=== PATIENT | male | born 1970 | race Caucasian/White ===

== ENCOUNTER 2017-03-21 05:40 | Day surgery (SDC) | payer BC ==
[~2017-03-21] VITALS: Ht 180.3 cm; Wt 104.3 kg
[~2017-03-21 05:40] MED LIST: CIPRO500 MG PO; FLOMAX0.4 MG PO
--- NOTE | 2017-03-21 08:54 | NUR ---
03/21/17 0854 Rachel Lopez 0836 PT ARRIVED TO PACU, WITH NASAL IN PLACE. RESP EVEN AND UNLABORED. 0845 PT RESPONDES TO STIMULI AND NASAL ARIWAY IS REMOVED. PT BACK TO SLEEP. O2 SAT 98% ON 8L VIA MASK.
--- NOTE | 2017-03-28 09:25 | OR ---
[facility] [address] [facility] [place], [place] [address] Signed DATE OF OPERATION: 03/21/2017 SURGEON: Luke Stark MD PREOPERATIVE DIAGNOSES: 1. Left ureterolithiasis. 2. Left nephrolithiasis. POSTOPERATIVE DIAGNOSES: 1. Left ureterolithiasis. 2. Left nephrolithiasis. NAMES OF PROCEDURES: 1. Diagnostic cystoscopy with manual extraction of left ureterovesical junction calculus. 2. Left nephroureteroscopy with extraction of multiple small stones. 3. Insertion of left ureteral stent. ANESTHESIA: General. ESTIMATED BLOOD LOSS: None. COMPLICATIONS: None. SPECIMENS: Multiple small stones including the distal ureteral stone, sent to the lab for stone analysis. DRAINS: A 6 x 26 cm contour double-J ureteral stent inserted into the left ureter. INDICATIONS FOR PROCEDURE: Nasir is a very pleasant 46-year-old gentleman with previous history of nephrolithiasis, who presented to my clinic last week with a two-week or so history of intermittent severe left-sided flank pain that was now radiating to his left groin. On March 07, he had presented to the Emergency Department at [facility], where he underwent a CT scan, which revealed a 3 x 6 mm distal left ureteral calculus. At that time, he was Electronically Signed By: LUKE STARK MD 03/28/17 0925 PATIENT NAME: NASIR BETANCOURT OPERATIVE REPORT DATE OF : 72 PHYSICIAN: LUKE STARK MD REPORT #: [id number] REPORT IS CONFIDENTIAL AND NOT TO BE RELEASED WITHOUT AUTHORIZATION [facility] [address] [place], [place] [address] Signed seen in clinic, he was still experiencing intermittent left-sided flank pain, and was pretty sure the stone was still present in the ureter. He had been straining his urine to no avail. After discussion of the risks and benefits of stone extraction, the patient agreed to undergo elective ureteroscopy with extraction of his left distal ureteral calculus. Of note, the patient was noted to have a 2 to 3 mm stone in the left kidney along with a couple of other punctate stones. OPERATIVE FINDINGS: 1. On cystoscopy, there is no evidence of any suspicious masses or lesions. There is evidence of an actively ureteral calculus present at the left ureteral orifice. This stone was manipulated from behind using the cystoscope, and was thus pushed free from the intramuscular layers of the left ureterovesical junction. The stone was successfully extracted from the patient's bladder without difficulty. 2. Left nephroscopy revealed the presence of a 2 to 3 mm stone in the lower pole of the left kidney along with a couple of other small stone fragments. All three stones were extracted in toto using a Zero-tip basket without difficulty. 3. A 6 x 26 cm contour double-J ureteral stent was inserted into the left ureter under direct visualization without difficulty. DESCRIPTION OF PROCEDURE: After informed consent was obtained, the patient was taken back to the operating room. He was transferred from the [facility] to the operating room table, where general anesthesia was induced. He was placed in the dorsal lithotomy position and his genitalia were prepped and draped in a standard sterile fashion. Using a 30-degree lens on a 22-Kazakh introducer, a rigid cystoscope was inserted through the urethra and into his bladder under direct visualization. Panendoscopic views of the bladder were then obtained. Please see the findings. I was easily able to visualize the left ureteral calculus. I used the scope to gently push on the more proximal portion of the intramural ureter just behind the stone. After couple of pushes, the stone popped out of the left ureteral orifice. The stone was then collected via drainage from the cystoscope and placed in a specimen cup. At that time, decision was made to go ahead and pursue extraction of the stones present in the patient's left kidney. The left ureteral orifice was cannulated with a Sensor wire, an adequate placement was confirmed on fluoroscopy. Over the Sensor wire, an 03/21 ureteral access sheath was placed into the left ureter. Retrograde pyelogram was performed, which confirmed adequate placement of the ureteral access sheath. A flexible ureteroscope was then advanced through the sheath and up into the left proximal ureter and left kidney. A left flexible nephroureteroscopy was then performed. Please see above findings. Each stone was located and grasped using a Zero-tip basket and removed completely. This portion of the procedure was done without any complication. Once I was satisfied that all the stones had been removed, the flexible ureteroscope was then withdrawn from the left ureter and bladder. A Sensor wire was inserted through the ureteral access sheath and then the ureteral access sheath was Electronically Signed By: LUKE STARK MD 03/28/17 0925 PATIENT NAME: NASIR BETANCOURT OPERATIVE REPORT DATE OF : 72 PHYSICIAN: LUKE STARK MD REPORT #: [id number] REPORT IS CONFIDENTIAL AND NOT TO BE RELEASED WITHOUT AUTHORIZATION [address] [address] Signed then removed. Over the wire, a 6 x 26 cm contour double-J ureteral stent was inserted into the patient's left ureter under direct visualization. An adequate proximal coil was seen on fluoroscopy along with an adequate distal coil on cystoscopy. The patient's bladder was then drained and the cystoscope was removed. The procedure was then terminated. The patient tolerated the procedure well without any complication. He will now be transferred to the postanesthesia care unit in stable condition. DISPOSITION: Mr. Betancourt will be discharged to home today in stable condition in accompany of his and his young son. I explained the details of today's procedure to both the patient and his postoperatively and answered all of their questions. He will be sent home today on Bactrim Double Strength for a total of 7 days along with Percocet 5/325, dispense #10 as needed for pain. He will be scheduled to return to clinic this March 25 to undergo cystoscopy with left ureteral stent extraction. Hopefully, his stone analysis results will be back in time for us to discuss those results at the time of his office visit. MD GISELLE Goodman/PAULINO /[id number] Electronically Signed By: LUKE STARK MD 03/28/17 0925 PATIENT NAME: ARACELY BETANCOURTN Nataly OPERATIVE REPORT DATE OF : 72 PHYSICIAN: LUKE STARK MD REPORT #: [id number] REPORT IS CONFIDENTIAL AND NOT TO BE RELEASED WITHOUT AUTHORIZATION
== END 2017-03-21 10:10 | disposition home or self-care (01) ==
LOC: OPS 05:40 → DS 05:40 → OPS 06:45
PROVIDERS: Urology
PROC: 0TC78ZZ Extirpation of Matter from Left Ureter, Via Natural or Artificial Opening Endoscopic (ICD-10-PCS; principal; 2017-03-21 06:45)
PROC: 0T778DZ Dilation of Left Ureter with Intraluminal Device, Via Natural or Artificial Opening Endoscopic (ICD-10-PCS; 2017-03-21 06:45)
DX: N20.2 Calculus of kidney with calculus of ureter (principal); F17.210 Nicotine dependence, cigarettes, uncomplicated; Z96.651 Presence of right artificial knee joint; Z88.0 Allergy status to penicillin
CPT/HCPCS: 00910; 74420; 82365; C2617; J0696; J1100; J1885; J2250; J2405; J3010; J7120; Q9967

== ENCOUNTER 2020-03-13 06:11 | Day surgery (SDC) | payer BC ==
[~2020-03-13] VITALS: Ht 180.3 cm; Wt 109.0 kg
--- NOTE | ~2020-03-13 | OR ---
[facility] [address] [place], [place] [address] Draft DATE OF OPERATION: 03/13/2020 SURGEON: Rodríguez Cox MD PREOPERATIVE DIAGNOSIS: Incarcerated umbilical hernia. POSTOPERATIVE DIAGNOSIS: Incarcerated umbilical hernia omental fat. PROCEDURES: 1. Repair of incarcerated umbilical hernia. 2. Implantation of Prolene mesh underlay technique with fascial closure. ANESTHESIA: General endotracheal; Haris Silverio CRNA and local 20 mL of 0.25% Marcaine with epinephrine. INDICATION: This 49-year-old white man is a patient of Gladis Louis PA-C. He is noted to have a small mass at the umbilicus. His symptoms appeared while lifting. At this time his discomfort has increased and he has noted a small mass, which appears to be incompletely reducible consistent with an incarcerated umbilical hernia. He has no nausea or vomiting to suggest hollow viscus incarceration. An ultrasound was performed confirming the fat within the hernia. This was under the direction of RIVERA Craft. He is admitted at this time to undergo repair of the hernia. He understands the risks of bleeding, infection, recurrence, and other unforeseen complications. Implantation of mesh is likely. He understand the risks, he wished to proceed. FINDINGS: The fascial defect was 2-3 cm in size. There was incarcerated properitoneal fat and omentum. The hernia was reduced without requiring excision. The properitoneal space was developed with a 2-3 cm margin allowing for implantation of Prolene mesh in the properitoneal space. Transverse reapproximation of the fascia was undertaken as well. There were no complications. DESCRIPTION OF PROCEDURE: The patient was brought to the operating room and given a general endotracheal PATIENT NAME: NASIR BETANCOURT OPERATIVE REPORT DATE OF : 72 REPORT #: [id number] PHYSICIAN: RODRÍGUEZ COX MD PCP: GLADIS LOUIS PA-C REPORT IS CONFIDENTIAL AND NOT TO BE RELEASED WITHOUT AUTHORIZATION [facility] [address] [place], [place] [address] Draft anesthetic. Preoperative antibiotic Ancef was given. Sequential compression device stockings were used and heparin subcutaneously administered. The abdomen was clipped and prepared with chlorhexidine solution and draped sterilely. The palpable mass at the umbilicus remained. It was not completely reducible. A curvilinear incision was made to the left of the umbilical skin fold. Dissection carried through the dermis sharply using blunt and electrocautery dissection. The subcutaneous space was developed and the herniated viscus freed from the overlying dermis of the umbilical skin itself. Ultimately, the hernia sac was opened and found to have incarcerated properitoneal fat and omentum. This was reduced into the peritoneal space. A plane was developed between the peritoneum and the overlying fascia and circumferentially developed using blunt dissection. The segment of Prolene mesh was cut to a circular configuration approximately 6 cm in size. It was secured in the properitoneal space with interrupted 0 Prolene suture. The fascia was reapproximated with interrupted 0 Prolene sutures as well, transversely reapproximating the fascial edge. Horizontal mattress sutures were used for this. 20 mL of 0.25% Marcaine with epinephrine was injected locally. Heidy layer was reapproximated with interrupted 2-0 Vicryl and a running subcuticular 3-0 Vicryl was used for the skin. Steri-Strips were applied as was a silver sponge dressing. Patient tolerated procedure well. BLOOD LOSS: Minimal. MD ALESSANDRA Acuña/PAULINO /[id number] cc: Gladis Louis PA-C Copies: ~ PATIENT NAME: SERAFINNASIR OPERATIVE REPORT DATE OF : 72 REPORT #: [id number] PHYSICIAN: RODRÍGUEZ COX MD PCP: GLADIS LOUIS PA-C REPORT IS CONFIDENTIAL AND NOT TO BE RELEASED WITHOUT AUTHORIZATION
[2020-03-13] MEDS ORDERED: ULTRAM50 MG PO (06:38)
[2020-03-13] MEDS ORDERED: LISINOPRIL-HCT1 EAC2 PO (06:38)
[2020-03-13] MEDS ORDERED: LEVOTHYROXINE100 MCG PO (06:39)
[2020-03-13] MEDS ORDERED: SERTRALINE HCL25 MG PO (06:39)
[2020-03-13] MEDS ORDERED: ROBAXIN-750750 MG PO (06:41)
--- NOTE | 2020-03-13 09:00 | NUR ---
03/13/20 0900 Vinson,Zandra Ingram PATIENT AWAKENED WITH TOUCH AND VOICE. ORAL AIRWAY REMOVED.
[2020-03-13] MEDS ORDERED: OXYCODON-ACETA1 EAC2 PO (09:05)
[2020-03-13] MEDS ORDERED: ACETAMINOPHEN500 MG PO (09:05)
[2020-03-13] MEDS ORDERED: IBUPROFEN600 MG PO (09:05)
--- NOTE | 2020-03-13 09:39 | NUR ---
PT ARRIVES TO DS RM 6 FROM PACU AWAKE BUT STATES FEELING "GROGGY." PT RATES PAIN 1/10 WHEN ASKED AND DENIES ANY NAUSEA. PT TAKES SMALL SIPS OF WATER WITH NO PROBLEMS. PT PROVIDED PUDDING AND CRACKERS. CALL LIGHT WITHIN REACH, DC CRITERIA EXPLAINED TO PT.
[2020-03-13] MEDS ORDERED: PERCOCET 7.5-31 EACH PO (10:09)
--- NOTE | 2020-03-13 10:28 | NUR ---
PT RESTING WITH EYES CLOSED ON ENTRANCE TO RM, EASILY AROUSES TO VERBAL STIMULI. PT STATES PAIN IS TOLERABLE AND DENIES ANY NAUSEA. PT ENC TO USE CALL LIGHT WITH URGE TO VOID. ICED WATER REFILLED. CALL LIGHT WITHIN REACH.
--- NOTE | 2020-03-13 10:45 | NUR ---
[id number]: PT USES CALL LIGHT TO NOTIFY DS STAFF OF URGE TO VOID. PT SITS AT SIDE OF BED PRIOR TO STANDING, DENIES ANY NAUSEA/DIZZINESS WITH POSITION CHANGE. PT HAS STEADY GAIT TO BATHROOM WITH RN ASSIST, VOIDS 100 MLS CONCENTRATED YELLOW URINE WITH NO PROBLEMS. BACK TO RM 6, PT STATES PAIN WITH MOVEMENT; SEE EMAR. 1120: DC CRITERIA MET AT THIS TIME, PT AGREEABLE TO GOING HOME. DC INSTRUCTIONS PRESENTED TO PT, PAIN PRESCRIPTION PROVIDED IN DC PACKET. PT DC VIA WC TO FRIEND WAITING AT HOSPITAL ENTRANCE TO HOME.
== END 2020-03-13 11:25 | disposition home or self-care (01) ==
LOC: DS 06:11
PROVIDERS: ATTEND Surgery
PROC: 0WUF0JZ Supplement Abdominal Wall with Synthetic Substitute, Open Approach (ICD-10-PCS; principal; 2020-03-13 06:45)
DX: K42.0 Umbilical hernia with obstruction, without gangrene (principal); I10 Essential (primary) hypertension; E03.9 Hypothyroidism, unspecified; F41.9 Anxiety disorder, unspecified; Z88.0 Allergy status to penicillin; Z79.890 Hormone replacement therapy; Z79.899 Other long term (current) drug therapy
CPT/HCPCS: 00750; C1781; J1644; J3010; J7121

== ENCOUNTER 2020-03-20 12:15 | Day surgery (SDC) | payer BC ==
[~2020-03-20 12:15] MED LIST changes: +ACETAMINOPHEN500 MG PO; +IBUPROFEN600 MG PO; +LEVOTHYROXINE100 MCG PO; +LISINOPRIL-HCT1 EAC2 PO; +OXYCODON-ACETA1 EAC2 PO; +PERCOCET 7.5-31 EACH PO; +ROBAXIN-750750 MG PO; +SERTRALINE HCL25 MG PO; +ULTRAM50 MG PO
--- NOTE | 2020-03-20 16:08 | NUR ---
03/20/20 1608 Oly Magana 1602 PATIENT ARRIVES TO PACU AWAKE, LAYING ON LEFT SIDE. RESP EVEN AND UNLABORED, ROOM AIR SATS >93%. DENIES PAIN OR NAUSEA. DOES HAVE HICCUPS.
--- NOTE | 2020-03-20 18:21 | OR ---
[facility] [place] [facility] [address] [place], [place] [address] Signed DATE OF OPERATION: 03/20/2020 SURGEON: Rodríguez Cox MD PREOPERATIVE DIAGNOSES: 1. Episodic rectal bleeding. 2. Recent umbilical hernia repair. POSTOPERATIVE DIAGNOSES: 1. Polyp at 20 cm (sessile, excised). 2. Internal hemorrhoidal changes, no sign of active bleeding. PROCEDURE: Total colonoscopy to cecum with hot snare polypectomy x1. ANESTHESIA: Intravenous sedation, fentanyl 100 mcg and Versed 9 mg. INDICATIONS: This 49-year-old white man is a patient of RIVERA Craft in [place]. He has noted episodic rectal bleeding. Additionally, he has had an incompletely reducible umbilical hernia. He underwent hernia repair recently and is recovering well from that. Given his rectal bleeding, consideration was made for colonoscopy. The risks of bleeding, infection, and perforation related to colonoscopy were reviewed with him in detail. He understands and wishes to proceed. FINDINGS: The prep was excellent. Complete colonoscopy was undertaken to the cecum without question. He did have a polyp at 20 cm, which was sessile and about a centimeter or more in size. This was excised with hot snare polypectomy technique without problem. Retroflexed view of the rectum confirmed internal hemorrhoids. There was no evidence of active bleeding or other problem regarding the hemorrhoids. DESCRIPTION OF PROCEDURE: The patient was brought to the endoscopy suite and placed in lateral decubitus position, given intravenous sedation to the point of slurred speech and nystagmus. Digital rectal examination was normal. The Olympus video colonoscope was passed into the rectum and manipulated throughout the colon, ultimately intubating the cecum itself. Careful withdrawal of scope showed no sign of abnormality until approximately 20 cm from the anal verge, where a sessile polyp was noted. This had adenomatous features. It was Electronically Signed By: RODRÍGUEZ COX MD 03/20/20 1821 PATIENT NAME: NASIR BETANCOURT OPERATIVE REPORT DATE OF : 72 REPORT #: [id number] PHYSICIAN: RODRÍGUEZ COX MD PCP: GLADIS LOUIS PA-C REPORT IS CONFIDENTIAL AND NOT TO BE RELEASED WITHOUT AUTHORIZATION [facility] [place] [facility] [address] [place], [place] [address] Signed excised with hot snare polypectomy technique in the usual way, complete excision was afforded. The specimen was passed for pathology. Further withdrawal of scope undertaken and retroflexed view undertaken and the rectum showing internal hemorrhoidal changes. There was no sign of active bleeding. The scope was removed. The patient was taken to the recovery room in good condition. CONCLUDING DIAGNOSIS: Rectal bleeding, most likely related to internal hemorrhoids rather than the polyp. The polyp has been excised. We would recommend repeat colonoscopy in 5 years based on the polyp. If dysplasia or some other adverse finding is noted of the polyp, a shorter interval would be appropriate. As regard to the hemorrhoids, high-fiber diet should be initiated. If he has recurrent rectal bleeding, consideration will be made for in office hemorrhoidal banding, which is highly effective and safe. He will otherwise return to the ongoing care of RIVERA Craft. MD ALESSANDRA Acuña/PAULINO /[id number] Copies: ~ Electronically Signed By: RODRÍGUEZ COX MD 03/20/20 1821 PATIENT NAME: NASIR BETANCOURT OPERATIVE REPORT DATE OF : 72 REPORT #: [id number] PHYSICIAN: RODRÍGUEZ COX MD PCP: GLADIS LOUIS PA-C REPORT IS CONFIDENTIAL AND NOT TO BE RELEASED WITHOUT AUTHORIZATION
== END 2020-03-20 16:25 | disposition home or self-care (01) ==
LOC: OPS 12:15 → DS 12:20 → OPS 14:00 → DS 14:00 → OPS 16:25
PROVIDERS: ATTEND Surgery
PROC: 0DBE8ZX Excision of Large Intestine, Via Natural or Artificial Opening Endoscopic, Diagnostic (ICD-10-PCS; principal; 2020-03-20 14:00)
DX: K62.5 Hemorrhage of anus and rectum (principal); K63.5 Polyp of colon; K64.8 Other hemorrhoids; K42.9 Umbilical hernia without obstruction or gangrene; I10 Essential (primary) hypertension; E03.9 Hypothyroidism, unspecified; F41.9 Anxiety disorder, unspecified; Z88.0 Allergy status to penicillin; Z79.890 Hormone replacement therapy; Z79.899 Other long term (current) drug therapy
CPT/HCPCS: 99153; G0500; J1100; J1885; J2001; J2250; J2405; J2704; J3010; J7121